=== PATIENT | male | born 1980 | race Caucasian/White ===

== ENCOUNTER 2024-03-12 15:23 | Emergency (ER) | payer BC ==
[2024-03-12 15:31] VITALS: PULSE 89; RESP 18; O2SAT 99
== END 2024-03-12 17:59 | disposition left against medical advice (07) ==
LOC: ER 15:23
DX: R10.9 Unspecified abdominal pain (principal); Z53.21 Procedure and treatment not carried out due to patient leaving prior to being seen by health care provider